=== PATIENT | female | born 1930 | race Caucasian/White ===

== ENCOUNTER → 2016-03-09 | Outpatient (CLI) | payer MEDICARE, BC ==
[~2016-03-09] MED LIST: ALDACTONE25 MG PO; AMLODIPINE10 MG PO; ATIVAN1 MG PO; CHILDREN'S ASPI81 M1 PO; CLARITIN10 M1 PO; ESTRACE0.1 MG/GM VG; FLONASE0.05 MG/AC NAS; LASIX 20MG TABL20 MG PO; NATURE'S BLEND400 I1 PO; NITROQUICK0.4 MG SL; PHENOBARBITAL15 MG PO; PRILOSEC 20MG20 MG PO; RECLAST5 MG/1001; ULTRAM 50MG TAB50 MG PO; VITAMIN D22000 IU PO; ZOCOR 40MG40 MG PO; [UNRECOGNIZED DRUG - OTHER] PO
== END ==
LOC: LAB 10:49
DX: N30.00 Acute cystitis without hematuria (principal)

== ENCOUNTER → 2016-03-26 | Outpatient (CLI) | payer MEDICARE, BC | LOC: LAB 10:00 | DX: N30.00 Acute cystitis without hematuria (principal) ==

== ENCOUNTER → 2016-03-29 | Outpatient (CLI) | payer MEDICARE, BC | LOC: LAB 09:34 | DX: N30.00 Acute cystitis without hematuria (principal) ==

== ENCOUNTER → 2017-07-26 | Outpatient (CLI) | payer MEDICARE, BC ==
[2015-04-15 09:05] VITALS: BP 179/88
[2017-07-26 09:52] LABS: EOS # 0.1 (0.04-0.40); EOS % 1.7 % (1.0-5.0); HEMATOCRIT 29.8 % (37.0-47.0); HEMOGLOBIN 9.2 g/dL (12.5-16.0); MEAN CELL VOLUME 97 fl (78-100); MEAN CORPUSCULAR HEMOGLOBIN 30 pg (27-31); MEAN CORPUSCULAR HGB CONC 31 g/dL (33-37); MEAN PLATELET VOLUME 9.9 fl (7.4-10.4); MONO # 0.3 (0.20-0.80); PLATELET COUNT 240 K/mm3 (130-400); RED BLOOD COUNT 3.07 M/mm3 (4.10-5.30); RED CELL DISTRIBUTION WIDTH 13.5 % (11.5-14.5); WHITE BLOOD COUNT 4.1 K/mm3 (4.8-10.8)
[2017-07-26 10:04] LABS: ALBUMIN 4.1 g/dL (3.5-5.0); BUN/CREATININE RATIO 16.8 (6.0-26.0); CALCIUM 9.3 mg/dL (8.4-10.2); POTASSIUM 3.9 mmol/L (3.6-5.0); TOTAL BILIRUBIN 0.2 mg/dL (0.2-1.3); TOTAL PROTEIN 7.1 g/dL (6.3-8.2)
[2017-07-26 10:17] LABS: URINE APPEARANCE CLEAR; URINE BILIRUBIN NEGATIVE (NEGATIVE); URINE BLOOD NEGATIVE (NEGATIVE); URINE COLOR YELLOW; URINE GLUCOSE NEGATIVE (NEGATIVE); URINE KETONE NEGATIVE (NEGATIVE); URINE LEUKOCYTE ESTERASE TRACE (NEGATIVE); URINE NITRATE NEGATIVE (NEGATIVE); URINE PROTEIN(semi-quant) 3+ mg/dL (NEGATIVE); URINE UROBILINOGEN NORMAL (NORMAL)
[2017-07-26 10:18] LABS: LYMPH# 0.7 (1.50-4.00)
== END ==
LOC: LAB 09:39
PROVIDERS: Nurse Practitioner Family
DX: E03.9 Hypothyroidism, unspecified (principal); R10.9 Unspecified abdominal pain; K59.00 Constipation, unspecified

== ENCOUNTER → 2017-08-04 | Outpatient (CLI) | payer MEDICARE, BC ==
[2015-04-15 09:05] VITALS: BP 179/88
== END ==
LOC: LAB 08:56
PROVIDERS: Internal Medicine
DX: I25.10 Atherosclerotic heart disease of native coronary artery without angina pectoris (principal); D50.9 Iron deficiency anemia, unspecified; R73.02 Impaired glucose tolerance (oral); M85.89 Other specified disorders of bone density and structure, multiple sites

== ENCOUNTER → 2017-08-11 | Outpatient (CLI) | payer MEDICARE, BC ==
[2015-04-15 09:05] VITALS: BP 179/88
== END ==
LOC: RAD 09:00 → MAMMO 09:15 → RAD 09:15
DX: Z13.820 Encounter for screening for osteoporosis (principal); M81.0 Age-related osteoporosis without current pathological fracture

== ENCOUNTER → 2017-08-18 | Outpatient (CLI) | payer MEDICARE, BC ==
[2015-04-15 09:05] VITALS: BP 179/88
[2017-08-18 17:54] LABS: URINE APPEARANCE HAZY; URINE COLOR YELLOW; URINE PROTEIN(semi-quant) 3+ mg/dL (NEGATIVE)
[2017-08-18 17:55] LABS: URINE BILIRUBIN NEGATIVE (NEGATIVE); URINE BLOOD NEGATIVE (NEGATIVE); URINE GLUCOSE NEGATIVE (NEGATIVE); URINE KETONE NEGATIVE (NEGATIVE); URINE LEUKOCYTE ESTERASE TRACE (NEGATIVE); URINE MUCUS PRESENT (NOT PRESENT); URINE NITRATE NEGATIVE (NEGATIVE); URINE UROBILINOGEN NORMAL (NORMAL)
== END ==
LOC: LAB 17:13
PROVIDERS: Internal Medicine
DX: R35.0 Frequency of micturition (principal)

== ENCOUNTER → 2017-09-05 | Outpatient (CLI) | payer MEDICARE, BC ==
[2015-04-15 09:05] VITALS: BP 179/88
[2017-09-05 08:53] LABS: EOS # 0.1 (0.04-0.40); EOS % 1.8 % (1.0-5.0); HEMATOCRIT 32.6 % (37.0-47.0); HEMOGLOBIN 10.1 g/dL (12.5-16.0); MEAN CELL VOLUME 94 fl (78-100); MEAN CORPUSCULAR HEMOGLOBIN 29 pg (27-31); MEAN CORPUSCULAR HGB CONC 31 g/dL (33-37); MEAN PLATELET VOLUME 9.2 fl (7.4-10.4); MONO # 0.3 (0.20-0.80); NEU # 2.6 (1.40-6.50); PLATELET COUNT 180 K/mm3 (130-400); RED BLOOD COUNT 3.46 M/mm3 (4.10-5.30); RED CELL DISTRIBUTION WIDTH 14.8 % (11.5-14.5); WHITE BLOOD COUNT 3.3 K/mm3 (4.8-10.8)
[2017-09-05 08:54] LABS: LYMPH# 0.4 (1.50-4.00)
[2017-09-05 09:47] LABS: BUN/CREATININE RATIO 15.9 (6.0-26.0); CALCIUM 8.3 mg/dL (8.4-10.2); POTASSIUM 3.9 mmol/L (3.6-5.0)
== END ==
LOC: LAB 08:27
PROVIDERS: Internal Medicine
DX: M25.511 Pain in right shoulder (principal); D50.9 Iron deficiency anemia, unspecified; I10 Essential (primary) hypertension

== ENCOUNTER → 2017-09-09 | Outpatient (CLI) | payer MEDICARE, BC ==
[2015-04-15 09:05] VITALS: BP 179/88
[2017-09-09 14:55] LABS: BUN/CREATININE RATIO 11.1 (6.0-26.0); CALCIUM 8.6 mg/dL (8.4-10.2); POTASSIUM 3.7 mmol/L (3.6-5.0)
[2017-09-09 15:14] LABS: EOS # 0.1 (0.04-0.40); EOS % 2.4 % (1.0-5.0); HEMATOCRIT 32.7 % (37.0-47.0); HEMOGLOBIN 10.2 g/dL (12.5-16.0); MEAN CELL VOLUME 93 fl (78-100); MEAN CORPUSCULAR HEMOGLOBIN 29 pg (27-31); MEAN CORPUSCULAR HGB CONC 31 g/dL (33-37); MEAN PLATELET VOLUME 9.7 fl (7.4-10.4); MONO # 0.4 (0.20-0.80); NEU # 2.7 (1.40-6.50); PLATELET COUNT 247 K/mm3 (130-400); RED BLOOD COUNT 3.53 M/mm3 (4.10-5.30); RED CELL DISTRIBUTION WIDTH 14.4 % (11.5-14.5); WHITE BLOOD COUNT 3.8 K/mm3 (4.8-10.8)
[2017-09-09 15:18] LABS: LYMPH# 0.6 (1.50-4.00)
[2017-09-09 16:29] LABS: PH-URINE 6.5 (5.0 - 8.0); URINE APPEARANCE HAZY; URINE COLOR YELLOW-ORANGE
[2017-09-09 16:36] LABS: URINE MUCUS PRESENT (NOT PRESENT)
== END ==
LOC: LAB 14:14
PROVIDERS: Nurse Practitioner Family
DX: M25.511 Pain in right shoulder (principal); M54.2 Cervicalgia; R53.81 Other malaise; D50.9 Iron deficiency anemia, unspecified; I10 Essential (primary) hypertension

== ENCOUNTER → 2018-03-16 | Outpatient (CLI) | payer MEDICARE, BC ==
[2015-04-15 09:05] VITALS: BP 179/88
[2018-03-16 10:27] LABS: HEMATOCRIT 29.1 % (37.0-47.0); HEMOGLOBIN 8.8 g/dL (12.5-16.0); MEAN CELL VOLUME 85 fl (78-100); MEAN CORPUSCULAR HEMOGLOBIN 26 pg (27-31); MEAN CORPUSCULAR HGB CONC 30 g/dL (33-37); MEAN PLATELET VOLUME 9.4 fl (7.4-10.4); PLATELET COUNT 250 K/mm3 (130-400); RED BLOOD COUNT 3.41 M/mm3 (4.10-5.30); RED CELL DISTRIBUTION WIDTH 15.6 % (11.5-14.5); WHITE BLOOD COUNT 6.9 K/mm3 (4.8-10.8)
[2018-03-16 10:42] LABS: ALBUMIN 4.1 g/dL (3.5-5.0); CALCIUM 9.1 mg/dL (8.4-10.2); POTASSIUM 4.4 mmol/L (3.6-5.0); TOTAL BILIRUBIN 0.2 mg/dL (0.2-1.3)
[2018-03-16 10:51] LABS: LYMPHOCYTE 4 % (20-51); MONOCYTE 4 % (3-10); NEUTROPHILS 92 % (42-75)
[2018-03-16 11:22] LABS: URINE APPEARANCE CLEAR; URINE BILIRUBIN NEGATIVE (NEGATIVE); URINE COLOR YELLOW; URINE GLUCOSE NEGATIVE (NEGATIVE); URINE KETONE NEGATIVE (NEGATIVE); URINE PROTEIN(semi-quant) 2+ mg/dL (NEGATIVE); URINE UROBILINOGEN NORMAL (NORMAL)
[2018-03-16 11:23] LABS: URINE BLOOD NEGATIVE (NEGATIVE); URINE LEUKOCYTE ESTERASE NEGATIVE (NEGATIVE); URINE NITRATE NEGATIVE (NEGATIVE)
[2018-03-16 11:30] LABS: ERYTHROCYTE SEDIMENTATION RATE 43 mm/hr (0-30)
== END ==
LOC: LAB 10:14
PROVIDERS: Internal Medicine
DX: I25.10 Atherosclerotic heart disease of native coronary artery without angina pectoris (principal); D50.9 Iron deficiency anemia, unspecified; E03.9 Hypothyroidism, unspecified; R73.02 Impaired glucose tolerance (oral); M81.0 Age-related osteoporosis without current pathological fracture

== ENCOUNTER → 2018-03-20 | Outpatient (CLI) | payer MEDICARE, BC ==
[2015-04-15 09:05] VITALS: BP 179/88
== END ==
LOC: LAB 09:36
PROVIDERS: Internal Medicine
DX: R73.02 Impaired glucose tolerance (oral) (principal)

== ENCOUNTER → 2018-05-11 | Outpatient (CLI) | payer MEDICARE, BC ==
[2015-04-15 09:05] VITALS: BP 179/88
[2018-05-11 11:28] LABS: URINE APPEARANCE CLOUDY; URINE BILIRUBIN NEGATIVE (NEGATIVE); URINE BLOOD NEGATIVE (NEGATIVE); URINE COLOR YELLOW; URINE GLUCOSE NEGATIVE (NEGATIVE); URINE KETONE NEGATIVE (NEGATIVE); URINE LEUKOCYTE ESTERASE TRACE (NEGATIVE); URINE NITRATE POSITIVE (NEGATIVE); URINE PROTEIN(semi-quant) 2+ mg/dL (NEGATIVE); URINE UROBILINOGEN NORMAL (NORMAL); URINE WBC >50 /hpf (0-3)
[2018-05-11 11:30] LABS: URINE MUCUS PRESENT (NOT PRESENT)
== END ==
LOC: LAB 09:46
PROVIDERS: Internal Medicine
DX: N30.00 Acute cystitis without hematuria (principal); B96.20 Unspecified Escherichia coli [E. coli] as the cause of diseases classified elsewhere

== ENCOUNTER → 2018-06-05 | Outpatient (CLI) | payer MEDICARE, BC ==
[2015-04-15 09:05] VITALS: BP 179/88
[2018-06-05 10:33] LABS: URINE WBC 0 /hpf (0-3)
[2018-06-05 11:15] LABS: URINE APPEARANCE CLEAR; URINE BILIRUBIN NEGATIVE (NEGATIVE); URINE BLOOD NEGATIVE (NEGATIVE); URINE COLOR YELLOW; URINE GLUCOSE NEGATIVE (NEGATIVE); URINE KETONE NEGATIVE (NEGATIVE); URINE LEUKOCYTE ESTERASE NEGATIVE (NEGATIVE); URINE NITRATE NEGATIVE (NEGATIVE); URINE PROTEIN(semi-quant) 2+ mg/dL (NEGATIVE); URINE UROBILINOGEN NORMAL (NORMAL)
== END ==
LOC: LAB 10:29
PROVIDERS: Internal Medicine
DX: Z01.818 Encounter for other preprocedural examination (principal); N39.0 Urinary tract infection, site not specified

== ENCOUNTER → 2018-08-14 | Outpatient (CLI) | payer MEDICARE, BC ==
[2015-04-15 09:05] VITALS: BP 179/88
[2018-08-14 11:37] LABS: BASO # 0.1 (0.02-0.10); EOS # 0.4 (0.04-0.40); EOS % 4.6 % (1.0-5.0); HEMATOCRIT 49.5 % (37.0-47.0); HEMOGLOBIN 16.1 g/dL (12.5-16.0); LYMPH# 1.8 (1.50-4.00); MEAN CELL VOLUME 90 fl (78-100); MEAN CORPUSCULAR HEMOGLOBIN 29 pg (27-31); MEAN CORPUSCULAR HGB CONC 33 g/dL (33-37); MEAN PLATELET VOLUME 11.4 fl (7.4-10.4); MONO # 0.8 (0.20-0.80); NEU # 6.3 (1.40-6.50); PLATELET COUNT 226 K/mm3 (130-400); RED BLOOD COUNT 5.48 M/mm3 (4.10-5.30); RED CELL DISTRIBUTION WIDTH 13.8 % (11.5-14.5); WHITE BLOOD COUNT 9.5 K/mm3 (4.8-10.8)
[2018-08-14 11:52] LABS: ALBUMIN 3.8 g/dL (3.4-4.8); CALCIUM 9.6 mg/dL (8.3-10.5); POTASSIUM 4.6 mmol/L (3.5-5.1); TOTAL BILIRUBIN 0.3 mg/dL (0.2-1.2); TOTAL PROTEIN 6.5 g/dL (6.2-8.1)
[2018-08-14 13:31] LABS: URINE APPEARANCE CLEAR; URINE BILIRUBIN NEGATIVE (NEGATIVE); URINE BLOOD NEGATIVE (NEGATIVE); URINE COLOR YELLOW; URINE GLUCOSE NEGATIVE (NEGATIVE); URINE KETONE NEGATIVE (NEGATIVE); URINE LEUKOCYTE ESTERASE TRACE (NEGATIVE); URINE NITRATE NEGATIVE (NEGATIVE); URINE PROTEIN(semi-quant) 2+ mg/dL (NEGATIVE); URINE UROBILINOGEN NORMAL (NORMAL)
== END ==
LOC: LAB 11:15
PROVIDERS: Internal Medicine
DX: Z01.818 Encounter for other preprocedural examination (principal); I51.7 Cardiomegaly; Z95.0 Presence of cardiac pacemaker; Z95.1 Presence of aortocoronary bypass graft; M17.10 Unilateral primary osteoarthritis, unspecified knee

== ENCOUNTER → 2019-01-29 | Outpatient (CLI) | payer MEDICARE, BC ==
[2015-04-15 09:05] VITALS: BP 179/88
== END ==
LOC: RAD 07:21
DX: K76.1 Chronic passive congestion of liver (principal); K76.89 Other specified diseases of liver; K83.9 Disease of biliary tract, unspecified; Z90.49 Acquired absence of other specified parts of digestive tract

== ENCOUNTER → 2019-01-30 | Outpatient (CLI) | payer MEDICARE, BC ==
[2015-04-15 09:05] VITALS: BP 179/88
[2019-01-30 13:13] LABS: PH-URINE 6.5 (5.0 - 8.0); URINE APPEARANCE CLEAR; URINE BILIRUBIN NEGATIVE (NEGATIVE); URINE BLOOD NEGATIVE (NEGATIVE); URINE COLOR YELLOW; URINE GLUCOSE NEGATIVE (NEGATIVE); URINE KETONE NEGATIVE (NEGATIVE); URINE LEUKOCYTE ESTERASE TRACE (NEGATIVE); URINE NITRATE NEGATIVE (NEGATIVE); URINE PROTEIN(semi-quant) 1+ mg/dL (NEGATIVE); URINE UROBILINOGEN NORMAL (NORMAL)
== END ==
LOC: LAB 11:50
PROVIDERS: Internal Medicine
DX: N30.00 Acute cystitis without hematuria (principal); E03.4 Atrophy of thyroid (acquired); I10 Essential (primary) hypertension